=== PATIENT | male | born 1985 | race African-American/Black ===

== ENCOUNTER 2016-12-10 17:20 | Inpatient (IN) | payer OTHER ==
[2016-12-10 19:36] VITALS: BMI 23.0
--- NOTE | 2016-12-10 20:22 | HP ---
CIWA Score - CIWA Score Nausea/Vomitin-No Nausea/No Vomiting Muscle Tremors: 3 Anxiety: 1-Mildly Anxious Agitation: 1-Slight > Activity Paroxysmal Sweats: 1-Minimal Palms Moist Orientation: 1-Uncertain about Date Tacttile Disturbances: 0-None Auditory Disturbances: 7Continuous Hallucination Visual Disturbances: 0-None Headache: 1-Very Mild CIWA-Ar Total Score: 15 Admission ROS BHS - HPI Chief Complaint: WITHDRAWAL SYMPTOMS Allergies/Adverse Reactions: Allergies Allergy/AdvReac Type Severity Reaction Status Date / Time No Known Drug Allergies Allergy Unknown Verified 10/04/13 17:47 CHEESE Allergy Mild "NO CHEESE" Uncoded 10/04/13 17:44 red AdvReac Uncoded 10/06/13 11:56 History of Present Illness: 31 y.o. man with an extensive history of drug and alcohol dependence is here seeking detox. He reports he last completed detox and rehab one year ago at another facility. He states his longest period of sobriety has been 1 year. Exam Limitations: No Limitations - Ebola screening Have you traveled outside of the country in the last 21 days: No (N) Have you had contact with anyone from an Ebola affected area: No Have you been sick,other than usual withdrawal symptoms: No Do you have a fever: No - Review of Systems Constitutional: No Symptoms Reported EENT: reports: No Symptoms Reported Respiratory: reports: No Symptoms reported Cardiac: reports: No Symptoms Reported GI: reports: No Symptoms Reported : reports: No Symptoms Reported Musculoskeletal: reports: No Symptoms Reported Integumentary: reports: No Symptoms Reported Neuro: reports: No Symptoms reported Endocrine: reports: No Symptoms Reported Hematology: reports: No Symptoms Reported Psychiatric: reports: Mood/Affect Appropiate, Anxious Other Systems: Reviewed and Negative Patient History - Patient Medical History Hx Anemia: No Hx Asthma: No Hx Chronic Obstructive Pulmonary Disease (COPD): No Hx Cancer: No Hx Cardiac Disorders: No Hx Congestive Heart Failure: No Hx Hypertension: No Hx Hypercholesterolemia: No Hx Pacemaker: No HX Cerebrovascular Accident: No Hx Seizures: No Hx Dementia: No Hx Diabetes: No Hx Gastrointestinal Disorders: No Hx Liver Disease: No Hx Genitourinary Disorders: No Hx Sexually Transmitted Disorders: Yes (Syphillis: treated 2014) Hx Renal Disease (ESRD): No Hx Thyroid Disease: No Hx Human Immunodeficiency Virus (HIV): No (02/07 last tested) Hx Hepatitis C: No Hx Depression: No Hx Suicide Attempt: No Hx Bipolar Disorder: No Hx Schizophrenia: No - Patient Surgical History Past Surgical History: No Hx Neurologic Surgery: No Hx Cataract Extraction: No Hx Cardiac Surgery: No Hx Lung Surgery: No Hx Breast Surgery: No Hx Breast Biopsy: No Hx Abdominal Surgery: No Hx Appendectomy: No Hx Cholecystectomy: No Hx Genitourinary Surgery: No Hx Section: No Hx Orthopedic Surgery: No Hx Hysterectomy: No Anesthesia Reaction: No - PPD History Previous Implant?: Yes Documented Results: Negative w/proof Implanted On Prior R Admission?: Yes Date: 10/06/13 Results: 0 PPD to be Administered?: Yes - Reproductive History Patient is a Female of Child Bearing Age (11 -55 yrs old): No - Smoking Cessation Smoking history: Current every day smoker Have you smoked in the past 12 months: Yes Aproximately how many cigarettes per day: 20 Cigars Per Day: 0 Hx Chewing Tobacco Use: No Initiated information on smoking cessation: Yes 'Breaking Loose' booklet given: 12/10/16 - Substance & Tx. History Hx Alcohol Use: Yes Hx Substance Use: Yes Substance Use Type: Alcohol, Cocaine Hx Substance Use Treatment: Yes (Reports last going to detox and rehab was 1 yr ago at another facility ) - Substances Abused Alcohol Route: Oral Frequency: Daily Amount used: 2-3 pints of liquor Age of first use: 11 Date of Last Use: 12/10/16 Cocaine Route: Smoking Frequency: Daily Amount used: $50 Age of first use: 15 Date of Last Use: 12/09/16 Family Disease History - Family Disease History Family Disease History: Other: Father (alcohol), Mother (alcohol) Admission Physical Exam BHS - Vital Signs Vital Signs: Vital Signs - 24 hr 12/10/16 19:31 Temperature 97.8 F Pulse Rate 82 Respiratory 20 Rate Blood Pressure 118/84 - Physical General Appearance: Yes: Disheveled HEENTM: Yes: Hearing grossly Normal, Normocephalic, Normal Voice Respiratory: Yes: Chest Non-Tender, Lungs Clear, Normal Breath Sounds, No Respiratory Distress, No Accessory Muscle Use Neck: Yes: No masses,lesions,Nodules, Trachea in good position Breast: Yes: Breast Exam Deferred Cardiology: Yes: Regular Rhythm, Regular Rate Abdominal: Yes: Flat, Soft Genitourinary: Yes: Other (No complaints reported) Back: Yes: Normal Inspection Musculoskeletal: Yes: full range of Motion, Gait Steady, Pelvis Stable Extremities: Yes: Normal Capillary Refill, Normal Inspection, Normal Range of Motion, Non-Tender, Tremors Neurological: Yes: Alert, Normal Mood/Affect, Normal Response Integumentary: Yes: Normal Color, Dry, Warm Lymphatic: Yes: Within Normal Limits - Diagnostic (1) Alcohol dependence Current Visit: Yes Status: Acute (2) Cocaine dependence Current Visit: Yes Status: Acute (3) Nicotine dependence Current Visit: Yes Status: Acute Cleared for Admission [facility] - Detox or Rehab [facility] Level of Care: Medically Managed Detox Regimen/Protocol: Librium [facility] Breath Alcohol Content Breath Alcohol Content: 0 Urine Drug Screen - Results Drug Screen Negative: No Urine Drug Screen Results: KEVIN-Cocaine
[2016-12-10] MEDS ORDERED: MAGNESIUM HYDROX 2400MG/30ML ORAL SUSPENSION 30 ML CUP PO PRN (20:28)
[2016-12-10] MEDS ORDERED: IBUPROFEN 400 MG TABLET (FP) PO PRN (20:28)
[2016-12-10] MEDS ORDERED: hydrOXYzine PAMOATE 50 MG CAPSULE (FP) PO PRN (20:28)
[2016-12-10] MEDS ORDERED: ACETAMINOPHEN 325 MG TABLET (FP) PO PRN (20:28)
[2016-12-10] MEDS ORDERED: chlordiazePOXIDE HCL 25 MG CAPSULE PO PRN (20:28)
[2016-12-10] MEDS ORDERED: MAG HYDROX/AL HYDROX/SIMETH 30 ML UNIT-DOSE CUP PO PRN (20:28)
[2016-12-10] MEDS ORDERED: chlordiazePOXIDE HCL 25 MG CAPSULE PO ONE (20:28)
[2016-12-10] MEDS ORDERED: LOPERAMIDE HCL 2 MG CAPSULE PO PRN (20:28)
[2016-12-10] MEDS ORDERED: guaiFENesin/D-METHORPHAN HB 10 ML UNIT-DOSE CUPS PO PRN (20:28)
[2016-12-10] MEDS ORDERED: P-EPHED 60MG/TRIPROLIDI 2.5MG TABLET PO PRN (20:28)
[2016-12-10] MEDS ORDERED: MENTHOL/PHENOL 1 EACH UD MM PRN (20:28)
[2016-12-10] MEDS ORDERED: MAGNESIUM CITRATE 300 ML BOTTLE PO PRN (20:28)
[2016-12-10] MEDS: chlordiazePOXIDE HCL 25 MG CAPSULE PO SCH (23:33)
[2016-12-10] MEDS: NICOTINE POLACRILEX 2 MG GUM BUC PRN (23:33)
[2016-12-10] MEDS: THIAMINE HCL 100 MG TABLET (FP) PO SCH (23:33)
[2016-12-10] MEDS: diphenhydrAMINE HCL 50 MG CAPSULE PO PRN (23:33)
[2016-12-11] MEDS: chlordiazePOXIDE HCL 25 MG CAPSULE PO SCH ×4 (05:52→22:23)
--- NOTE | 2016-12-11 09:03 | CONSULT ---
[facility] Psychiatric Consult - Data Date of interview: 12/11/16 Admission source: [facility] Identifying data: This is 31 years old male with no psychiatiorc hospitalization history intoxicated withy: Alcohol, Cocaine, Cannabis Nicotine Substance Abuse History: - Smoking Cessation. Smoking history: Current every day smoker. Have you smoked in the past 12 months: Yes. Aproximately how many cigarettes per day: 20. Cigars Per Day: 0. Hx Chewing Tobacco Use: No. Initiated information on smoking cessation: Yes. 'Breaking Loose' booklet given : 12/10/16. - Substance & Tx. History. Hx Alcohol Use: Yes. Hx Substance Use : Yes. Substance Use Type: Alcohol, Cocaine. Hx Substance Use Treatment: Yes ( Reports last going to detox and rehab was 1 yr ago at another facility ). - Substances Abused. Alcohol. Route: Oral. Frequency: Daily. Amount used: 2 -3 pints of liquor. Age of first use: 11. Date of Last Use: 12/10/16. Cocaine. Route: Smoking. Frequency: Daily. Amount used: $50. Age of first use: 15. Date of Last Use: 12/09/16 Medical History: Syncope history, Weight loss history Psychiatric History: Patoient reprots history of depression and PTSD, reports taking prior Trazodone 100mg po qhs Physical/Sexual Abuse/Trauma History: Denies Additional Comment: Trazodone 100mg po qhs. Observation. Detox Unit Care Protocol Mental Status Exam - Mental Status Exam Alert and Oriented to: Person Cognitive Function: Fair Patient Appearance: Unkempt Mood: Sad Affect: Flat Patient Behavior: Guarded Speech Pattern: Delayed Voice Loudness: Mildly Soft/Quiet Thought Process: Circumstantial Thought Disorder: Being Controlled Hallucinations: Denies Suicidal Ideation: Denies Homicidal Ideation: Denies Insight/Judgement: Fair Sleep: Difficulty falling asleep Appetite: Weight loss Muscle strength/Tone: Mild Hypotonicity Gait/Station: Shuffling Additional Comments: Trazodone 100mg po qhs. Observation. Detox Unit Care Protocol Psychiatric Findings - Problem List ([place] 1, 2,3) (1) Alcohol dependence Current Visit: Yes Status: Acute (2) Cocaine dependence Current Visit: Yes Status: Acute (3) Nicotine dependence Current Visit: Yes Status: Acute (4) depression Current Visit: No Status: Active (5) Cannabis dependence Current Visit: No Status: Acute (6) Drug-induced mood disorder Current Visit: Yes Status: Acute - Initial Treatment Plan Initial Treatment Plan: Trazodone 100mg po qhs. Observation. Detox Unit Care Protocol. Refusing to restart Trazodone 100mg po qhs
[2016-12-11 10:29] LABS: MCH 30.8 pg (25.7-33.7); MCHC 33.9 g/dl (32.0-35.9); MEAN PLT VOLUME 7.8 fl (7.5-11.1); PLATELET COUNT 250 K/MM3 (134-434); RDW 12.2 % (11.9-15.9); WHITE BLOOD COUNT 3.9 K/mm3 (4.0-10.0)
[2016-12-11] MEDS: NICOTINE POLACRILEX 2 MG GUM BUC PRN (10:39)
[2016-12-11] MEDS: PRENATAL VITAMINS W/ FOLIC ACID TABLET (FP) PO SCH (10:39)
[2016-12-11 10:42] LABS: ALBUMIN 3.2 g/dl (3.4-5.0); ALK PHOS 67 U/L (45-117); ANION GAP 6 (8-16); BILIRUBIN,TOTAL 0.4 mg/dL (0.2-1.0); CALCIUM 8.4 mg/dL (8.5-10.1); CO2 27 mmol/L (21-32); CREATININE 0.8 mg/dL (0.7-1.3); GLUCOSE,RANDOM 88 mg/dL (74-106); SGOT/AST 10 U/L (15-37); SGPT/ALT 16 U/L (12-78); TOT PROT 6.3 g/dl (6.4-8.2)
[2016-12-11 12:08] LABS: HIV 1 & 2 AB NEGATIVE; HIV 1 AGp24 NEGATIVE
--- NOTE | 2016-12-11 12:24 | PN ---
S CIWA - CIWA Score Nausea/Vomitin Muscle Tremors: 3 Anxiety: 4-Mod. Anxious/Guarded Agitation: 2 Paroxysmal Sweats: No Perspiration Orientation: 0-Oriented Tacttile Disturbances: 2-Mild Itch/Numbness/Burn Auditory Disturbances: 2-Mild Harshness/Frighten Visual Disturbances: 0-None Headache: 0-None Present CIWA-Ar Total Score: 15 BHS Progress Note (SOAP) Subjective: Anxious, Tremors, Fatigue. Objective: PT. A & O X 3. NO ACUTE DISTRESS. 12/11/16 12:22 Vital Signs Temperature 96.9 F L 12/11/16 06:36 Pulse Rate 76 12/11/16 06:36 Respiratory Rate 16 12/11/16 06:36 Blood Pressure 111/71 12/11/16 06:36 O2 Sat by Pulse Oximetry (%) Laboratory Tests 12/11/16 12/11/16 12/11/16 07:00 07:00 07:00 WBC 3.9 L RBC 3.94 L Hgb 12.1 D Hct 35.8 MCV 91.0 MCH 30.8 MCHC 33.9 RDW 12.2 Plt Count 250 MPV 7.8 Sodium 141 Potassium 4.1 Chloride 108 H Carbon Dioxide 27 Anion Gap 6 L BUN 12 Creatinine 0.8 Creat Clearance w eGFR > 60 Random Glucose 88 Calcium 8.4 L Total Bilirubin 0.4 D AST 10 L D ALT 16 D Alkaline Phosphatase 67 Total Protein 6.3 L Albumin 3.2 L RPR Titer Nonreactive HIV 1&2 Antibody Screen HIV P24 Antigen 12/11/16 07:00 WBC RBC Hgb Hct MCV MCH MCHC RDW Plt Count MPV Sodium Potassium Chloride Carbon Dioxide Anion Gap BUN Creatinine Creat Clearance w eGFR Random Glucose Calcium Total Bilirubin AST ALT Alkaline Phosphatase Total Protein Albumin RPR Titer HIV 1&2 Antibody Screen Negative HIV P24 Antigen Negative LABS NOTED. Assessment: 12/11/16 12:23 WITHDRAWAL SYMPTOMS. Plan: CONTINUE DETOX.
--- NOTE | 2016-12-11 20:01 | EKG ---
Test Reason : Blood Pressure : / mmHG Vent. Rate : 054 BPM Atrial Rate : 054 BPM P-R Int : 138 ms QRS Dur : 090 ms QT Int : 400 ms P-R-T Axes : 041 072 043 degrees QTc Int : 379 ms SINUS BRADYCARDIA OTHERWISE NORMAL ECG NO PREVIOUS ECGS AVAILABLE Confirmed by MIGUEL HERNANDEZ MD ([id number]) on 12/11/2016 8:00:49 PM Referred By: Jose Luis Chavarria Confirmed By:MIGUEL HERNANDEZ MD
[2016-12-11] MEDS: THIAMINE HCL 100 MG TABLET (FP) PO SCH (22:23)
[2016-12-11] MEDS: diphenhydrAMINE HCL 50 MG CAPSULE PO PRN (22:23)
[2016-12-12] MEDS: chlordiazePOXIDE HCL 25 MG CAPSULE PO SCH ×3 (06:01→17:05)
[2016-12-12] MEDS: NICOTINE POLACRILEX 2 MG GUM BUC PRN ×6 (06:02→23:18)
[2016-12-12] MEDS: PRENATAL VITAMINS W/ FOLIC ACID TABLET (FP) PO SCH (11:21)
--- NOTE | 2016-12-12 12:18 | PN ---
S CIWA - CIWA Score Nausea/Vomitin Muscle Tremors: 4-Moderate,w/Arms Extend Anxiety: 3 Agitation: 0-Normal Activity Paroxysmal Sweats: 3 Orientation: 0-Oriented Tacttile Disturbances: 1-Very Mild Itch/Numbness Auditory Disturbances: 0-None Visual Disturbances: 0-None Headache: 1-Very Mild CIWA-Ar Total Score: 15 BHS Progress Note (SOAP) Subjective: nausea, sweats, interrupted sleep, anxiety, tremors Objective: 12/12/16 12:17 Vital Signs - 8 hr 12/12/16 12/12/16 06:47 10:16 Temperature 96.3 F L 97.9 F Pulse Rate 71 85 Respiratory 18 18 Rate Blood Pressure 101/71 110/71 Laboratory Tests 12/10/16 12/11/16 12/11/16 07:00 07:00 07:00 WBC 3.9 L RBC 3.94 L Hgb 12.1 D Hct 35.8 MCV 91.0 MCH 30.8 MCHC 33.9 RDW 12.2 Plt Count 250 MPV 7.8 Sodium 141 Potassium 4.1 Chloride 108 H Carbon Dioxide 27 Anion Gap 6 L BUN 12 Creatinine 0.8 Creat Clearance w eGFR > 60 Random Glucose 88 Calcium 8.4 L Total Bilirubin 0.4 D AST 10 L D ALT 16 D Alkaline Phosphatase 67 Total Protein 6.3 L Albumin 3.2 L RPR Titer Hepatitis C Antibody <0.1 HIV 1&2 Antibody Screen HIV P24 Antigen 12/11/16 12/11/16 07:00 07:00 WBC RBC Hgb Hct MCV MCH MCHC RDW Plt Count MPV Sodium Potassium Chloride Carbon Dioxide Anion Gap BUN Creatinine Creat Clearance w eGFR Random Glucose Calcium Total Bilirubin AST ALT Alkaline Phosphatase Total Protein Albumin RPR Titer Nonreactive Hepatitis C Antibody HIV 1&2 Antibody Screen Negative HIV P24 Antigen Negative hypoalbuminemia Assessment: 12/12/16 12:17 withdrawal sx Plan: cont detox, fluids, ambulation, ensure ordered for low alb/malnutirtion from substance use
[2016-12-12 17:32] LABS: URINE APPEARANCE CLEAR; URINE BILIRUBIN NEGATIVE (NEGATIVE); URINE BLOOD NEGATIVE (NEGATIVE); URINE COLOR LT. YELLOW; URINE GLUCOSE (UA) NEGATIVE (NEGATIVE); URINE KETONE NEGATIVE (NEGATIVE); URINE LEUK ESTERASE NEGATIVE (NEGATIVE); URINE NITRITE NEGATIVE (NEGATIVE); URINE PROTEIN NEGATIVE (NEGATIVE); URINE UROBILINOGEN 0.2 mg/dL (0.2-1.0)
[2016-12-12] MEDS: THIAMINE HCL 100 MG TABLET (FP) PO SCH (22:29)
[2016-12-12] MEDS: chlordiazePOXIDE 5 MG CAPSULE PO SCH (22:29)
[2016-12-12] MEDS: diphenhydrAMINE HCL 50 MG CAPSULE PO PRN (22:30)
[2016-12-13] MEDS: chlordiazePOXIDE 5 MG CAPSULE PO SCH ×3 (06:13→17:17)
[2016-12-13] MEDS: NICOTINE POLACRILEX 2 MG GUM BUC PRN ×6 (10:36→23:23)
[2016-12-13] MEDS: PRENATAL VITAMINS W/ FOLIC ACID TABLET (FP) PO SCH (10:36)
--- NOTE | 2016-12-13 16:26 | PN ---
BHS Progress Note (SOAP) Subjective: Sweating,interrupted sleep,restless Objective: 12/13/16 16:25 Vital Signs - 8 hr 12/13/16 12/13/16 09:39 13:59 Temperature 97.9 F 96.2 F L Pulse Rate 80 83 Respiratory 20 20 Rate Blood Pressure 116/75 115/71 Laboratory Last Values WBC 3.9 K/mm3 (4.0-10.0) L 12/11/16 07:00 RBC 3.94 M/mm3 (4.00-5.60) L 12/11/16 07:00 Hgb 12.1 GM/dL (11.7-16.9) D 12/11/16 07:00 Hct 35.8 % (35.4-49) 12/11/16 07:00 MCV 91.0 fl (80-96) 12/11/16 07:00 MCH 30.8 pg (25.7-33.7) 12/11/16 07:00 MCHC 33.9 g/dl (32.0-35.9) 12/11/16 07:00 RDW 12.2 % (11.9-15.9) 12/11/16 07:00 Plt Count 250 K/MM3 (134-434) 12/11/16 07:00 MPV 7.8 fl (7.5-11.1) 12/11/16 07:00 Sodium 141 mmol/L (136-145) 12/11/16 07:00 Potassium 4.1 mmol/L (3.5-5.1) 12/11/16 07:00 Chloride 108 mmol/L (98-107) H 12/11/16 07:00 Carbon Dioxide 27 mmol/L (21-32) 12/11/16 07:00 Anion Gap 6 (8-16) L 12/11/16 07:00 BUN 12 mg/dL (7-18) 12/11/16 07:00 Creatinine 0.8 mg/dL (0.7-1.3) 12/11/16 07:00 Creat Clearance w eGFR > 60 (>60) 12/11/16 07:00 Random Glucose 88 mg/dL (74-106) 12/11/16 07:00 Calcium 8.4 mg/dL (8.5-10.1) L 12/11/16 07:00 Total Bilirubin 0.4 mg/dL (0.2-1.0) D 12/11/16 07:00 AST 10 U/L (15-37) L D 12/11/16 07:00 ALT 16 U/L (12-78) D 12/11/16 07:00 Alkaline Phosphatase 67 U/L (45-117) 12/11/16 07:00 Total Protein 6.3 g/dl (6.4-8.2) L 12/11/16 07:00 Albumin 3.2 g/dl (3.4-5.0) L 12/11/16 07:00 Urine Color Lt. yellow 12/12/16 14:07 Urine Appearance Clear 12/12/16 14:07 Urine pH 7.0 (5.0-8.0) 12/12/16 14:07 Ur Specific [place] 1.020 (1.005-1.025) 12/12/16 14:07 Urine Protein Negative (NEGATIVE) 12/12/16 14:07 Urine Glucose (UA) Negative (NEGATIVE) 12/12/16 14:07 Urine Ketones Negative (NEGATIVE) 12/12/16 14:07 Urine Blood Negative (NEGATIVE) 12/12/16 14:07 Urine Nitrite Negative (NEGATIVE) 12/12/16 14:07 Urine Bilirubin Negative (NEGATIVE) 12/12/16 14:07 Urine Urobilinogen 0.2 mg/dL (0.2-1.0) 12/12/16 14:07 Ur Leukocyte Esterase Negative (NEGATIVE) 12/12/16 14:07 RPR Titer Nonreactive (NONREACTIVE) 12/11/16 07:00 Hepatitis C Antibody <0.1 s/co ratio (0.0-0.9) 12/10/16 07:00 HIV 1&2 Antibody Screen Negative 12/11/16 07:00 HIV P24 Antigen Negative 12/11/16 07:00 labs noted Assessment: 12/13/16 16:26 Withdrawal sx. Plan: Continue detox
[2016-12-13] MEDS: diphenhydrAMINE HCL 50 MG CAPSULE PO PRN (22:15)
[2016-12-13] MEDS: THIAMINE HCL 100 MG TABLET (FP) PO SCH (22:15)
[2016-12-13] MEDS: chlordiazePOXIDE HCL 10 MG CAPSULE PO SCH (22:15)
[2016-12-14] MEDS: chlordiazePOXIDE HCL 10 MG CAPSULE PO SCH (05:45)
[2016-12-14] MEDS: NICOTINE POLACRILEX 2 MG GUM BUC PRN (05:47)
[2016-12-14 06:27] VITALS: BP 114/69; PULSE 75; TEMP 97
--- NOTE | 2016-12-14 22:50 | DS ---
[facility] Detox Discharge Summary Admission Date: 12/10/16 Discharge Date: 12/14/16 - History Present History: Alcohol Dependence, Cocaine Dependence Additional Comments: PATIENT TO GO TO [facility] UNTIL UNTIL 12/16/2016 AND THEN GO TO [facility] IN [facility] FOR FOLLOW-UP AFTERCARE. PATIENT DISCHARGED FROM UNIT IN STABLE MEDICAL CONDITION. - Physical Exam Results Vital Signs: Vital Signs Temperature 97 F L 12/14/16 06:26 Pulse Rate 75 12/14/16 06:26 Respiratory Rate 18 12/14/16 06:26 Blood Pressure 114/69 12/14/16 06:26 O2 Sat by Pulse Oximetry (%) Pertinent Admission Physical Exam Findings: WITHDRAWAL SYMPTOMS. Laboratory Tests 12/10/16 12/11/16 12/11/16 07:00 07:00 07:00 WBC 3.9 L RBC 3.94 L Hgb 12.1 D Hct 35.8 MCV 91.0 MCH 30.8 MCHC 33.9 RDW 12.2 Plt Count 250 MPV 7.8 Sodium 141 Potassium 4.1 Chloride 108 H Carbon Dioxide 27 Anion Gap 6 L BUN 12 Creatinine 0.8 Creat Clearance w eGFR > 60 Random Glucose 88 Calcium 8.4 L Total Bilirubin 0.4 D AST 10 L D ALT 16 D Alkaline Phosphatase 67 Total Protein 6.3 L Albumin 3.2 L Urine Color Urine Appearance Urine pH Ur Specific [place] Urine Protein Urine Glucose (UA) Urine Ketones Urine Blood Urine Nitrite Urine Bilirubin Urine Urobilinogen Ur Leukocyte Esterase RPR Titer Hepatitis C Antibody <0.1 HIV 1&2 Antibody Screen HIV P24 Antigen 12/11/16 12/11/16 12/12/16 07:00 07:00 14:07 WBC RBC Hgb Hct MCV MCH MCHC RDW Plt Count MPV Sodium Potassium Chloride Carbon Dioxide Anion Gap BUN Creatinine Creat Clearance w eGFR Random Glucose Calcium Total Bilirubin AST ALT Alkaline Phosphatase Total Protein Albumin Urine Color Lt. yellow Urine Appearance Clear Urine pH 7.0 Ur Specific [place] 1.020 Urine Protein Negative Urine Glucose (UA) Negative Urine Ketones Negative Urine Blood Negative Urine Nitrite Negative Urine Bilirubin Negative Urine Urobilinogen 0.2 Ur Leukocyte Esterase Negative RPR Titer Nonreactive Hepatitis C Antibody HIV 1&2 Antibody Screen Negative HIV P24 Antigen Negative LABS NOTED. - Treatment Hospital Course: Detox Protocol Followed, Detoxed Safely, Responded well, Discharged Condition Good, Rehab Referral Accepted Patient has Accepted a Rehab Referral to: [facility], [place] - Medication Discharge Medications: Ambulatory Orders Trazodone HCl [Desyrel] 100 mg PO HS #0 tablet 07/18/12 - Diagnosis (1) Nicotine dependence Status: Acute (2) Alcohol dependence Status: Acute (3) Cannabis dependence Status: Acute (4) Cocaine dependence Status: Acute (5) Drug-induced mood disorder Status: Acute (6) depression Status: Active - AMA Did Patient Leave Against Medical Advice: No
== END 2016-12-14 08:25 | disposition home or self-care (01) | DRG 774 ==
LOC: YASAS 17:20 → Y3N 21:57 → UNDOADMIN 21:57 → Y3N 22:13
PROVIDERS: ADMIT Internal Medicine; ATTEND Internal Medicine
PROC: HZ2ZZZZ Detoxification Services for Substance Abuse Treatment (ICD-10-PCS; principal; 2016-12-10)
DX: F10.230 Alcohol dependence with withdrawal, uncomplicated (principal); F14.20 Cocaine dependence, uncomplicated; F17.210 Nicotine dependence, cigarettes, uncomplicated; F19.24 Other psychoactive substance dependence with psychoactive substance-induced mood disorder; F32.9 Major depressive disorder, single episode, unspecified; E88.09 Other disorders of plasma-protein metabolism, not elsewhere classified; Z87.438 Personal history of other diseases of male genital organs; Z91.011 Allergy to milk products; Z59.0 Homelessness
CPT/HCPCS: 36415; 80053; 81003; 85027; 86593; 86803; 87389; 93005; 93010

== ENCOUNTER 2019-04-22 15:03 | Inpatient (IN) | payer OTHER ==
[2019-04-22 18:10] VITALS: BMI 21.9
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
[2019-04-22] MEDS ORDERED: MAGNESIUM HYDROX 2400MG/30ML ORAL SUSPENSION 30 ML CUP PO PRN (21:15)
[2019-04-22] MEDS ORDERED: hydrOXYzine PAMOATE 25 MG CAPSULE (FP) PO PRN (21:15)
[2019-04-22] MEDS ORDERED: MELATONIN 5 MG TABLETS PO PRN (21:15)
[2019-04-22] MEDS ORDERED: METHOCARBAMOL 500 MG TABLET PO PRN (21:15)
[2019-04-22] MEDS ORDERED: ACETAMINOPHEN 325 MG TABLET (FP) PO PRN ×2 (21:15)
[2019-04-22] MEDS ORDERED: MENTHOL/PHENOL 1 EACH UD MM PRN (21:15)
[2019-04-22] MEDS ORDERED: chlordiazePOXIDE HCL 25 MG CAPSULE PO PRN (21:15)
[2019-04-22] MEDS ORDERED: MAGNESIUM CITRATE 300 ML BOTTLE PO PRN (21:15)
[2019-04-22] MEDS ORDERED: MAG HYDROX/AL HYDROX/SIMETH 30 ML UNIT-DOSE CUP PO PRN (21:15)
[2019-04-22] MEDS ORDERED: BISMUTH SUBSALICYLATE 524 MG/30 ML UD PO PRN (21:15)
[2019-04-22] MEDS ORDERED: IBUPROFEN 400 MG TABLET (FP) PO PRN (21:15)
[2019-04-22] MEDS ORDERED: THIAMINE HCL 100 MG TABLET (FP) PO SCH (22:00)
[2019-04-22] MEDS: chlordiazePOXIDE HCL 25 MG CAPSULE PO SCH (22:05)
[2019-04-22] MEDS: NICOTINE POLACRILEX 2 MG GUM BUC PRN (22:05)
[2019-04-23] MEDS: chlordiazePOXIDE HCL 25 MG CAPSULE PO SCH ×2 (06:53→11:06)
[2019-04-23] MEDS: NICOTINE POLACRILEX 2 MG GUM BUC PRN (06:56)
[2019-04-23] MEDS ORDERED: NICOTINE 21 MG/24 HOURS TOPICAL PATCH TD SCH (10:00)
[2019-04-23] MEDS ORDERED: PRENATAL VITAMINS W/ FOLIC ACID TABLET (FP) PO SCH (10:00)
[2019-04-23 10:24] LABS: HEMATOCRIT 38.8 % (35.4-49); MCH 31.6 pg (25.7-33.7); MCHC 33.6 g/dl (32.0-35.9); MEAN PLT VOLUME 8.3 fl (7.5-11.1); PLATELET COUNT 266 K/MM3 (134-434); RBC 4.13 M/mm3 (4.00-5.60); RDW 12.8 % (11.9-15.9); WHITE BLOOD COUNT 5.1 K/mm3 (4.0-10.0)
[2019-04-23 10:34] LABS: ALBUMIN 3.4 g/dl (3.4-5.0); BILIRUBIN,TOTAL 0.3 mg/dL (0.2-1); BLOOD UREA NITROGEN 10.4 mg/dL (7-18); CALCIUM 8.3 mg/dL (8.5-10.1); CREATININE 0.9 mg/dL (0.55-1.3); POTASSIUM 4.3 mmol/L (3.5-5.1); TOT PROT 6.4 g/dl (6.4-8.2)
--- NOTE | 2019-04-23 11:05 | PN ---
S CIWA - CIWA Score Nausea/Vomitin-No Nausea/No Vomiting Muscle Tremors: 3 Anxiety: 3 Agitation: 3 Paroxysmal Sweats: 3 Orientation: 0-Oriented Tacttile Disturbances: 0-None Auditory Disturbances: 0-None Visual Disturbances: 0-None Headache: 0-None Present CIWA-Ar Total Score: 12 S Progress Note (SOAP) Subjective: sweats agitation body aches irritable Objective: 04/23/19 11:04 Vital Signs Temperature 97.7 F 04/23/19 09:18 Pulse Rate 75 04/23/19 09:18 Respiratory Rate 18 04/23/19 09:18 Blood Pressure 111/58 L 04/23/19 09:18 O2 Sat by Pulse Oximetry (%) Laboratory Tests 04/23/19 04/23/19 04/23/19 07:40 07:40 07:50 WBC 5.1 RBC 4.13 Hgb 13.0 Hct 38.8 MCV 94.0 MCH 31.6 MCHC 33.6 RDW 12.8 Plt Count 266 MPV 8.3 Sodium 140 Potassium 4.3 Chloride 110 H Carbon Dioxide 26 Anion Gap 4 L BUN 10.4 Creatinine 0.9 Est GFR (CKD-EPI)AfAm 127.80 Est GFR (CKD-EPI)NonAf 110.27 Random Glucose 86 Calcium 8.3 L Total Bilirubin 0.3 AST 16 ALT 21 Alkaline Phosphatase 69 Total Protein 6.4 Albumin 3.4 HIV 1&2 Antibody Screen Negative HIV P24 Antigen Negative aaox3 ambulating no acute distress Assessment: 04/23/19 11:04 withdrawal sx Plan: continue detox increase fluids
[2019-04-23] MEDS ORDERED: MELATONIN 5 MG TABLETS PO PRN (12:00)
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
--- NOTE | 2019-04-23 13:28 | EKG ---
Test Reason : Blood Pressure : / mmHG Vent. Rate : 071 BPM Atrial Rate : 071 BPM P-R Int : 152 ms QRS Dur : 086 ms QT Int : 376 ms P-R-T Axes : 071 083 047 degrees QTc Int : 408 ms NORMAL SINUS RHYTHM WITH SINUS ARRHYTHMIA VOLTAGE CRITERIA FOR LEFT VENTRICULAR HYPERTROPHY WHEN COMPARED WITH ECG OF 10-DEC-2016 22:37, T WAVE AMPLITUDE HAS DECREASED IN ANTERIOR LEADS Confirmed by ROSALINDA URIBE, VIDA ([id number]) on 04/23/2019 1:28:22 PM Referred By: Confirmed By:VIDA TELLEZ MD
[2019-04-23 16:41] VITALS: BP 145/90; PULSE 63; TEMP 96.3
--- NOTE | 2019-04-23 16:48 | PN ---
[facility] Progress Note Note: Notified by nursing staff patient requested to sign out AMA. Patient encouraged to stay in treatment and wait for provider evaluation. Patient refused to stay in detox and requested to sign out AMA immediately. Patient left prior to provider evaluation and signed out AMA. Vital Signs Temperature 96.3 F L 04/23/19 16:41 Pulse Rate 63 04/23/19 16:41 Respiratory Rate 20 04/23/19 16:41 Blood Pressure 145/90 04/23/19 16:41 O2 Sat by Pulse Oximetry (%) Laboratory Tests 04/23/19 04/23/19 04/23/19 07:40 07:40 07:40 WBC 5.1 RBC 4.13 Hgb 13.0 Hct 38.8 MCV 94.0 MCH 31.6 MCHC 33.6 RDW 12.8 Plt Count 266 MPV 8.3 Sodium 140 Potassium 4.3 Chloride 110 H Carbon Dioxide 26 Anion Gap 4 L BUN 10.4 Creatinine 0.9 Est GFR (CKD-EPI)AfAm 127.80 Est GFR (CKD-EPI)NonAf 110.27 Random Glucose 86 Calcium 8.3 L Total Bilirubin 0.3 AST 16 ALT 21 Alkaline Phosphatase 69 Total Protein 6.4 Albumin 3.4 RPR Titer Nonreactive HIV 1&2 Antibody Screen HIV P24 Antigen 04/23/19 07:50 WBC RBC Hgb Hct MCV MCH MCHC RDW Plt Count MPV Sodium Potassium Chloride Carbon Dioxide Anion Gap BUN Creatinine Est GFR (CKD-EPI)AfAm Est GFR (CKD-EPI)NonAf Random Glucose Calcium Total Bilirubin AST ALT Alkaline Phosphatase Total Protein Albumin RPR Titer HIV 1&2 Antibody Screen Negative HIV P24 Antigen Negative
--- NOTE | 2019-04-23 19:16 | DS ---
[facility] Detox Discharge Summary Admission Date: 04/22/19 Discharge Date: 04/23/19 - History Present History: Alcohol Dependence - Physical Exam Results Vital Signs: Vital Signs Temperature 96.3 F L 04/23/19 16:41 Pulse Rate 63 04/23/19 16:41 Respiratory Rate 20 04/23/19 16:41 Blood Pressure 145/90 04/23/19 16:41 O2 Sat by Pulse Oximetry (%) Pertinent Admission Physical Exam Findings: Admitted w/ alcohol withdrawal symptoms. Laboratory Last Values WBC 5.1 K/mm3 (4.0-10.0) 04/23/19 07:40 RBC 4.13 M/mm3 (4.00-5.60) 04/23/19 07:40 Hgb 13.0 GM/dL (11.7-16.9) 04/23/19 07:40 Hct 38.8 % (35.4-49) 04/23/19 07:40 MCV 94.0 fl (80-96) 04/23/19 07:40 MCH 31.6 pg (25.7-33.7) 04/23/19 07:40 MCHC 33.6 g/dl (32.0-35.9) 04/23/19 07:40 RDW 12.8 % (11.9-15.9) 04/23/19 07:40 Plt Count 266 K/MM3 (134-434) 04/23/19 07:40 MPV 8.3 fl (7.5-11.1) 04/23/19 07:40 Sodium 140 mmol/L (136-145) 04/23/19 07:40 Potassium 4.3 mmol/L (3.5-5.1) 04/23/19 07:40 Chloride 110 mmol/L (98-107) H 04/23/19 07:40 Carbon Dioxide 26 mmol/L (21-32) 04/23/19 07:40 Anion Gap 4 MMOL/L (8-16) L 04/23/19 07:40 BUN 10.4 mg/dL (7-18) 04/23/19 07:40 Creatinine 0.9 mg/dL (0.55-1.3) 04/23/19 07:40 Est GFR (CKD-EPI)AfAm 127.80 04/23/19 07:40 Est GFR (CKD-EPI)NonAf 110.27 04/23/19 07:40 Random Glucose 86 mg/dL (74-106) 04/23/19 07:40 Calcium 8.3 mg/dL (8.5-10.1) L 04/23/19 07:40 Total Bilirubin 0.3 mg/dL (0.2-1) 04/23/19 07:40 AST 16 U/L (15-37) 04/23/19 07:40 ALT 21 U/L (13-61) 04/23/19 07:40 Alkaline Phosphatase 69 U/L (45-117) 04/23/19 07:40 Total Protein 6.4 g/dl (6.4-8.2) 04/23/19 07:40 Albumin 3.4 g/dl (3.4-5.0) 04/23/19 07:40 RPR Titer Nonreactive (NONREACTIVE) 04/23/19 07:40 HIV 1&2 Antibody Screen Negative 04/23/19 07:50 HIV P24 Antigen Negative 04/23/19 07:50 Labs reviewed. - Treatment Hospital Course: Discharged Condition Good (Patient did not complete detox. Patient refused to met w/ NO for home prescriptions or NRT.) - Diagnosis (1) Alcohol dependence with withdrawal, uncomplicated Status: Acute (2) depression Status: Chronic (3) Cocaine dependence Status: Chronic (4) Nicotine dependence Status: Chronic - AMA Did Patient Leave Against Medical Advice: Yes
[2019-04-24] MEDS ORDERED: chlordiazePOXIDE HCL 25 MG CAPSULE PO SCH (05:00)
[2019-04-25] MEDS ORDERED: chlordiazePOXIDE HCL 10 MG CAPSULE PO PRN
[2019-04-25] MEDS ORDERED: chlordiazePOXIDE HCL 10 MG CAPSULE PO SCH (05:00)
[2019-04-26] MEDS ORDERED: chlordiazePOXIDE HCL 10 MG CAPSULE PO SCH (05:00)
[2019-04-27] MEDS ORDERED: chlordiazePOXIDE HCL 10 MG CAPSULE PO ONE (05:00)
== END 2019-04-23 16:55 | disposition left against medical advice (07) | DRG 770 ==
LOC: YASAS 15:03 → Y6N 21:31
PROVIDERS: ADMIT Allergy & Immunology; ATTEND Allergy & Immunology
PROC: HZ2ZZZZ Detoxification Services for Substance Abuse Treatment (ICD-10-PCS; principal; 2019-04-22)
DX: F10.230 Alcohol dependence with withdrawal, uncomplicated (principal); F14.20 Cocaine dependence, uncomplicated; F12.20 Cannabis dependence, uncomplicated; F17.210 Nicotine dependence, cigarettes, uncomplicated; F19.282 Other psychoactive substance dependence with psychoactive substance-induced sleep disorder; Z87.438 Personal history of other diseases of male genital organs; Z91.011 Allergy to milk products; Z62.810 Personal history of physical and sexual abuse in childhood
CPT/HCPCS: 36415; 80053; 85027; 86593; 87389; 93005; 93010

== ENCOUNTER 2019-06-05 12:27 | Inpatient (IN) | payer OTHER ==
[2019-06-05 13:53] VITALS: BMI 23.8
--- NOTE | 2019-06-05 16:15 | HP ---
CIWA Score Nausea/Vomitin Muscle Tremors: 3 Anxiety: 3 Agitation: 4-Moderately Restless Paroxysmal Sweats: 1-Minimal Palms Moist Orientation: 0-Oriented Tacttile Disturbances: 0-None Auditory Disturbances: 0-None Visual Disturbances: 0-None Headache: 0-None Present CIWA-Ar Total Score: 14 - Admission Criteria [facility]ASAS Guidelines: Admission for Medically Managed Detox: Requires at least one of the followin. CIWA greater than 12 2. Seizures within the past 24 hours 3. Delirium tremens within the past 24 hours 4. Hallucinations within the past 24 hours 5. Acute intervention needed for co occurring medical disorder 6. Acute intervention needed for co occurring psychiatric disorder 7. Severe withdrawal that cannot be handled at a lower level of care (continued vomiting, continued diarrhea, abnormal vital signs) requiring intravenous medication and/or fluids 8. Patient presents the following: CIWA greater than 12 Admission Criteria Met: Admission criteria met Admitting History and Physical - Primary Care Physician PCP: none - Admission Chief Complaint: going into alcohol withdrawal History of Present Illness: drinks daily, 2 pints of vodka, now starting to withdraw, feels anxious, nausea , shaking tremors, sweaty last detox was March. Before that was around 3 years ago. History Source: Patient Limitations to Obtaining History: No Limitations - Past Medical History [employer]: No: Alzheimer's, CVA, Dementia, Migraine, Multiple Sclerosis, Peripheral Neuropathy, Parkinson's, Seizure, Syncope, TIA, Vertigo, Other Cardiovascular: No: AFIB, Aneurysm, Aortic Insufficiency, Aortic Stenosis, CAD, CHF, Deep Vein Thrombosis, HTN, Hyperlipdemia, CA, Mitral Insufficiency, Mitral Stenosis, Murmur, Pulmonary Hypertension, Other Pulmonary: No: Asthma, Bronchitis, Cancer, COPD, O2 Dependent, Pneumonia, Previously Intubated, Pulmonary Embolus, Pulmonary Fibrosis, Sleep Apnea, Other Gastrointestinal: No: Ascites, Cancer, Constipation, Crohn's Disease, Diverticulitis, Diverticulosis, Esophageal Varices, Gastritis, GERD, GI Bleed, Hemorrhoids, Hiatal Hernia, Inflamatory Bowel Disease, Irritable Bowel Disease, Pancreatitis, Peptic Ulcer Disease, Ulcerative Colitis, Other Hepatobiliary: No: Cirrhosis, Cholelithiasis, Cholecystitis, Choledocholithiasis , Hepatitis A, Hepatitis B, Hepatitis C, Other Renal/: No: Renal Failure, Renal Inusuff, BPH, Cancer, Hematuria, Hemodialysis , Neurogenic Bladder, Renal Calculi, UTI, Other Heme/Onc: No: Anemia, B12 Deficiency, Bleeding Disorder, Cancer, Current Chemotherapy, Current Radiation Therapy, Hemochromatosis, Hypercoaguable State, Myeloproliferative Synd, Sickle Cell Disease, Sickle Cell Trait, Thrombocytopenia, Other Infectious Disease: No: AIDS, C-Diff, Herpes Zoster, HIV, MRSA, STD's, Tuberculosis, VREF, Other Psych: No: Addictions, Anxiety, Bipolar, Depression, Panic, Psychosis, Schizophrenia, Other Musculoskeletal: No: Bursitis, Chronic low back pain, Hemiparesis, Hemiplegia, Osteoarthritis, Paraplegia, Other Rheumatology: No: Fibromyalgia, Gout, Lupus, Rheumatoid Arthritis, Sarcoidosis, Vasculitis, Other ENT: No: Allergic Rhinitis, Sinusitis, Other Endocrine: No: Jon's Disease, [place]'s Disease, Diabetes Insipidus, Diabetes Mellitus, Hyperparathyroidism, Hyperthyroidism, Hypothyroidism, Osteopenia, SIADH, Other Dermatology: No: Basal Cell, Cellulitis, Eczema, Melanoma, Psoriasis, Squamous Cell, Other - Past Surgical History Past Surgical History: No: None, AAA Repair, AICD, Amputation, Appendectomy, Arthrosocopy, AV Fistula/Graft, Bariatric Surgery, Breast Biopsy, Bypass, CABG, Carotid Endarterectomy, Cataract Removal, Cholecystectomy, Colectomy, Colonoscopy, Colostomy, Craniotomy, , Cystectomy, Hernia Repair, Hysterectomy, Ileal Conduit, Ileosotomy, Joint Replacement, Kidney Transplant, Laminectomy, Liver Transplant, Mastectomy, Nephrectomy, Oopherectomy, Orchiectomy, Permanent Pacemaker, Prostatectomy, Splenectomy, Stent, Thoracotomy , TURP, Tonsillectomy, Tubal Ligation, Upper Endoscopy, Valve Replacement, Vasectomy, Vein Stripping/Ligation - Advance Directives Advance Directives: No: Living Will, Health Care Proxy, DNR, Organ Donor, Tissue Donor, MOLST - Smoking History Smoking history: Current every day smoker Have you smoked in the past 12 months: Yes Aproximately how many cigarettes per day: 20 - Alcohol/Substance Use Hx Alcohol Use: Yes Number of Drinks Daily: 2 (2 pints vodka daily) History of Substance Use: reports: Marijuana Date of Last Use: 05/29/19 (2x per month) - Social History Usual Living Arrangement: Yes: With Significant Other (lives with mother) Do you think of yourself as: Straight/Heterosexual ADL: Independent Occupation: unemployed History of Recent Travel: No Admission ROS S - [facility] Chief Complaint: alcohol withdrawal Allergies/Adverse Reactions: Allergies Allergy/AdvReac Type Severity Reaction Status Date / Time cheese Allergy Verified 06/05/19 13:45 No Known Drug Allergies Allergy Verified 04/23/19 12:33 lactose AdvReac Verified 06/05/19 13:45 lactose intolerance AdvReac Uncoded 04/22/19 18:13 Exam Limitations: No Limitations - Ebola screening Have you traveled outside of the country in the last 21 days: No - Review of Systems Constitutional: Chills, Diaphoresis, Weight Stable EENT: reports: No Symptoms Reported Respiratory: reports: No Symptoms reported Cardiac: reports: No Symptoms Reported GI: reports: Nausea : reports: No Symptoms Reported Musculoskeletal: reports: Muscle Pain Integumentary: reports: No Symptoms Reported Neuro: reports: Tremors Endocrine: reports: No Symptoms Reported Hematology: reports: No Symptoms Reported Psychiatric: reports: No Sypmtoms Reported Other Systems: Reviewed and Negative Patient History - Patient Medical History Hx Anemia: No Hx Asthma: No Hx Chronic Obstructive Pulmonary Disease (COPD): No Hx Cancer: No Hx Cardiac Disorders: No Hx Congestive Heart Failure: No Hx Hypertension: No Hx Hypercholesterolemia: No Hx Pacemaker: No HX Cerebrovascular Accident: No Hx Seizures: No Hx Dementia: No Hx Diabetes: No Hx Gastrointestinal Disorders: No Hx Liver Disease: No Hx Genitourinary Disorders: No Hx Sexually Transmitted Disorders: Yes (Syphillis: treated 2014) Hx Renal Disease (ESRD): No Hx Thyroid Disease: No Hx Human Immunodeficiency Virus (HIV): No (02/07 last tested) Hx Hepatitis C: No Hx Depression: Yes (Not on medication) Hx Suicide Attempt: No (Denies suicidal ideation at this time) Hx Bipolar Disorder: No Hx Schizophrenia: No - Patient Surgical History Past Surgical History: No Hx Neurologic Surgery: No Hx Cataract Extraction: No Hx Cardiac Surgery: No Hx Lung Surgery: No Hx Breast Surgery: No Hx Breast Biopsy: No Hx Abdominal Surgery: No Hx Appendectomy: No Hx Cholecystectomy: No Hx Genitourinary Surgery: No Hx Section: No Hx Orthopedic Surgery: No Hx Hysterectomy: No Anesthesia Reaction: No - PPD History Documented Results: Negative w/proof Implanted On Prior [facility] Admission?: Yes Date: 12/12/16 Results: 0 PPD to be Administered?: Yes - Reproductive History Patient is a Female of Child Bearing Age (11 -55 yrs old): No - Smoking Cessation Smoking history: Current every day smoker Have you smoked in the past 12 months: Yes Aproximately how many cigarettes per day: 20 Cigars Per Day: 0 Hx Chewing Tobacco Use: No Initiated information on smoking cessation: Yes 'Breaking Loose' booklet given: 06/05/19 - Substance & Tx. History Hx Alcohol Use: Yes Hx Substance Use: Yes Substance Use Type: Marijuana Hx Substance Use Treatment: Yes (detox here before) - Substances abused Alcohol Substance route: Oral Frequency: Daily Amount used: 2 pints of vodka/day Age of first use: 11 Date of last use: 06/05/19 Admission Physical Exam [facility] - Vital Signs Vital Signs: Vital Signs - 24 hr 06/05/19 13:48 Temperature 98.4 F Pulse Rate 94 H Respiratory 16 Rate Blood Pressure 133/70 - Physical General Appearance: Yes: Within Normal Limits, Mild Distress, Thin, Irritable HEENTM: Yes: Within Normal Limits. No: Scleral Ictenus R, Scleral Ictenus L, Pharyngeal Erythemia, Tonsilar Exudate, Thrush Respiratory: Yes: Within Normal Limits. No: Rales, Wheezing Neck: Yes: Within Normal Limits. No: Thyroid enlarged Breast: Yes: Within Normal Limits Cardiology: Yes: Within Normal Limits, Regular Rhythm, Regular Rate, S1, S2. No : JVD, Murmur Abdominal: Yes: Within Normal Limits, Non Tender, Soft. No: Guarding, Rebound Back: Yes: Within Normal Limits. No: CVA Tenderness Musculoskeletal: Yes: Within Normal Limits, full range of Motion, Gait Steady Extremities: Yes: Within Normal Limits, Normal Inspection, Normal Range of Motion, Non-Tender Neurological: Yes: Within Normal Limits, payroll technician II-XII NML intact, Alert, Motor Strength 5/5. No: Sensory Deficit Integumentary: Yes: Within Normal Limits, Normal Color Lymphatic: Yes: Within Normal Limits - Diagnostic (1) Alcohol dependence Current Visit: No Status: Acute (2) Alcohol dependence with withdrawal, uncomplicated Current Visit: No Status: Acute Cleared for Admission [facility] - Detox or Rehab [facility] Level of Care: Medically Managed Detox Regimen/Protocol: Librium Breathalyzer - Breathalyzer Breathalyzer: 0 Urine Drug Screen - Test Device Lot number: [id number] Expiration date: 03/22/21 - Control Is test valid?: Yes - Results Drug screen NEGATIVE: No Urine drug screen results: KEVIN-Cocaine Inpatient Rehab Admission - Rehab Decision to Admit Inpatient rehab admission?: No
[2019-06-05] MEDS ORDERED: BISMUTH SUBSALICYLATE 524 MG/30 ML UD PO PRN (16:24)
[2019-06-05] MEDS ORDERED: METHOCARBAMOL 500 MG TABLET PO PRN (16:24)
[2019-06-05] MEDS ORDERED: hydrOXYzine PAMOATE 25 MG CAPSULE (FP) PO PRN (16:24)
[2019-06-05] MEDS ORDERED: MAG HYDROX/AL HYDROX/SIMETH 30 ML UNIT-DOSE CUP PO PRN (16:24)
[2019-06-05] MEDS ORDERED: chlordiazePOXIDE HCL 10 MG CAPSULE PO PRN (16:24)
[2019-06-05] MEDS ORDERED: MELATONIN 5 MG TABLETS PO PRN (16:24)
[2019-06-05] MEDS ORDERED: IBUPROFEN 400 MG TABLET (FP) PO PRN (16:24)
[2019-06-05] MEDS ORDERED: ACETAMINOPHEN 325 MG TABLET (FP) PO PRN ×2 (16:24)
[2019-06-05] MEDS ORDERED: MAGNESIUM HYDROX 2400MG/30ML ORAL SUSPENSION 30 ML CUP PO PRN (16:24)
[2019-06-05] MEDS ORDERED: MAGNESIUM CITRATE 300 ML BOTTLE PO PRN (16:24)
[2019-06-05] MEDS ORDERED: ONDANSETRON *ODT* 4 MG TABLET SL PRN (16:24)
[2019-06-05] MEDS ORDERED: MENTHOL/PHENOL 1 EACH UD MM PRN (16:24)
[2019-06-05] MEDS: NICOTINE POLACRILEX 2 MG GUM BUC PRN ×3 (17:34→22:46)
[2019-06-05] MEDS ORDERED: THIAMINE HCL 100 MG TABLET (FP) PO SCH (22:00)
[2019-06-05] MEDS: chlordiazePOXIDE HCL 25 MG CAPSULE PO SCH (22:44)
[2019-06-06] MEDS: chlordiazePOXIDE HCL 25 MG CAPSULE PO SCH ×2 (06:07→12:58)
[2019-06-06] MEDS: NICOTINE POLACRILEX 2 MG GUM BUC PRN ×3 (09:39→16:52)
[2019-06-06 09:46] VITALS: TEMP 96.5
[2019-06-06] MEDS ORDERED: PRENATAL VITAMINS W/ FOLIC ACID TABLET (FP) PO SCH (10:00)
[2019-06-06 10:16] LABS: HEMATOCRIT 35.6 % (35.4-49); HEMOGLOBIN 12.1 GM/dL (11.7-16.9); MCH 31.5 pg (25.7-33.7); MCHC 34.1 g/dl (32.0-35.9); MEAN CELL VOLUME 92.2 fl (80-96); MEAN PLT VOLUME 8.5 fl (7.5-11.1); PLATELET COUNT 245 K/MM3 (134-434); RBC 3.86 M/mm3 (4.00-5.60); RDW 13.1 % (11.9-15.9); WHITE BLOOD COUNT 3.2 K/mm3 (4.0-10.0)
[2019-06-06 10:55] LABS: ALBUMIN 3.3 g/dl (3.4-5.0); BILIRUBIN,TOTAL 0.8 mg/dL (0.2-1); BLOOD UREA NITROGEN 12.3 mg/dL (7-18); CALCIUM 8.8 mg/dL (8.5-10.1); CREATININE 1.1 mg/dL (0.55-1.3); POTASSIUM 4.5 mmol/L (3.5-5.1); TOT PROT 6.7 g/dl (6.4-8.2)
--- NOTE | 2019-06-06 12:01 | PN ---
S CIWA - CIWA Score Nausea/Vomitin-Mild Nausea/No Vomiting Muscle Tremors: 2 Anxiety: 3 Agitation: 1-Slight > Activity Paroxysmal Sweats: 2 Orientation: 0-Oriented Tacttile Disturbances: 0-None Auditory Disturbances: 1-Very Mild Visual Disturbances: 1-Very Mild Sensitivity Headache: 1-Very Mild CIWA-Ar Total Score: 12 S Progress Note (SOAP) Subjective: 33 years old male admitted on 06/05/19 for alcohol withdrawal sx management treating with librium detox regiment feeling ok today but tired trouble to fall a sleep last night less tremor Objective: 06/06/19 12:04 Vital Signs Temperature 96.5 F L 06/06/19 09:22 Pulse Rate 76 06/06/19 09:22 Respiratory Rate 18 06/06/19 09:22 Blood Pressure 113/67 06/06/19 09:22 O2 Sat by Pulse Oximetry (%) Laboratory Last Values WBC 3.2 K/mm3 (4.0-10.0) L 06/06/19 07:20 RBC 3.86 M/mm3 (4.00-5.60) L 06/06/19 07:20 Hgb 12.1 GM/dL (11.7-16.9) 06/06/19 07:20 Hct 35.6 % (35.4-49) 06/06/19 07:20 MCV 92.2 fl (80-96) 06/06/19 07:20 MCH 31.5 pg (25.7-33.7) 06/06/19 07:20 MCHC 34.1 g/dl (32.0-35.9) 06/06/19 07:20 RDW 13.1 % (11.9-15.9) 06/06/19 07:20 Plt Count 245 K/MM3 (134-434) 06/06/19 07:20 MPV 8.5 fl (7.5-11.1) 06/06/19 07:20 Sodium 140 mmol/L (136-145) 06/06/19 07:20 Potassium 4.5 mmol/L (3.5-5.1) 06/06/19 07:20 Chloride 107 mmol/L (98-107) 06/06/19 07:20 Carbon Dioxide 28 mmol/L (21-32) 06/06/19 07:20 Anion Gap 5 MMOL/L (8-16) L 06/06/19 07:20 BUN 12.3 mg/dL (7-18) 06/06/19 07:20 Creatinine 1.1 mg/dL (0.55-1.3) 06/06/19 07:20 Est GFR (CKD-EPI)AfAm 100.27 06/06/19 07:20 Est GFR (CKD-EPI)NonAf 86.51 06/06/19 07:20 Random Glucose 83 mg/dL (74-106) 06/06/19 07:20 Calcium 8.8 mg/dL (8.5-10.1) 06/06/19 07:20 Total Bilirubin 0.8 mg/dL (0.2-1) 06/06/19 07:20 AST 12 U/L (15-37) L 06/06/19 07:20 ALT 16 U/L (13-61) 06/06/19 07:20 Alkaline Phosphatase 65 U/L (45-117) 06/06/19 07:20 Total Protein 6.7 g/dl (6.4-8.2) 06/06/19 07:20 Albumin 3.3 g/dl (3.4-5.0) L 06/06/19 07:20 RPR Titer Nonreactive (NONREACTIVE) 06/06/19 07:20 lab noted Assessment: 06/06/19 12:04 alcohol withdrawal Plan: librium regiment
[2019-06-06 13:37] VITALS: BP 116/66; PULSE 73
--- NOTE | 2019-06-06 17:50 | DS ---
[facility] Detox Discharge Summary Admission Date: 06/05/19 Discharge Date: 06/06/19 - History Present History: Alcohol Dependence, Cocaine Dependence Pertinent Past History: Denies significant medical history - Physical Exam Results Vital Signs: Vital Signs Temperature 96.5 F L 06/06/19 13:01 Pulse Rate 73 06/06/19 13:01 Respiratory Rate 18 06/06/19 13:01 Blood Pressure 116/66 06/06/19 13:01 O2 Sat by Pulse Oximetry (%) Pertinent Admission Physical Exam Findings: withdrawal sx Laboratory Last Values WBC 3.2 K/mm3 (4.0-10.0) L 06/06/19 07:20 RBC 3.86 M/mm3 (4.00-5.60) L 06/06/19 07:20 Hgb 12.1 GM/dL (11.7-16.9) 06/06/19 07:20 Hct 35.6 % (35.4-49) 06/06/19 07:20 MCV 92.2 fl (80-96) 06/06/19 07:20 MCH 31.5 pg (25.7-33.7) 06/06/19 07:20 MCHC 34.1 g/dl (32.0-35.9) 06/06/19 07:20 RDW 13.1 % (11.9-15.9) 06/06/19 07:20 Plt Count 245 K/MM3 (134-434) 06/06/19 07:20 MPV 8.5 fl (7.5-11.1) 06/06/19 07:20 Sodium 140 mmol/L (136-145) 06/06/19 07:20 Potassium 4.5 mmol/L (3.5-5.1) 06/06/19 07:20 Chloride 107 mmol/L (98-107) 06/06/19 07:20 Carbon Dioxide 28 mmol/L (21-32) 06/06/19 07:20 Anion Gap 5 MMOL/L (8-16) L 06/06/19 07:20 BUN 12.3 mg/dL (7-18) 06/06/19 07:20 Creatinine 1.1 mg/dL (0.55-1.3) 06/06/19 07:20 Est GFR (CKD-EPI)AfAm 100.27 06/06/19 07:20 Est GFR (CKD-EPI)NonAf 86.51 06/06/19 07:20 Random Glucose 83 mg/dL (74-106) 06/06/19 07:20 Calcium 8.8 mg/dL (8.5-10.1) 06/06/19 07:20 Total Bilirubin 0.8 mg/dL (0.2-1) 06/06/19 07:20 AST 12 U/L (15-37) L 06/06/19 07:20 ALT 16 U/L (13-61) 06/06/19 07:20 Alkaline Phosphatase 65 U/L (45-117) 06/06/19 07:20 Total Protein 6.7 g/dl (6.4-8.2) 06/06/19 07:20 Albumin 3.3 g/dl (3.4-5.0) L 06/06/19 07:20 RPR Titer Nonreactive (NONREACTIVE) 06/06/19 07:20 Labs noted - Medication Discharge Medications: Ambulatory Orders NK [No Known Home Medication] 06/05/19 - Diagnosis (1) Alcohol dependence with withdrawal delirium Status: Acute (2) Cocaine dependence Status: Acute - AMA Did Patient Leave Against Medical Advice: Yes (Patient refused to be assessed by provider)
[2019-06-07] MEDS ORDERED: chlordiazePOXIDE 5 MG CAPSULE PO SCH (05:00)
--- NOTE | 2019-06-07 09:48 | EKG ---
Test Reason : Blood Pressure : / mmHG Vent. Rate : 068 BPM Atrial Rate : 068 BPM P-R Int : 150 ms QRS Dur : 090 ms QT Int : 392 ms P-R-T Axes : 069 073 039 degrees QTc Int : 416 ms NORMAL SINUS RHYTHM MINIMAL VOLTAGE CRITERIA FOR LVH, MAY BE NORMAL VARIANT ST ELEVATION, CONSIDER EARLY REPOLARIZATION, PERICARDITIS, OR INJURY ABNORMAL ECG WHEN COMPARED WITH ECG OF 22-APR-2019 21:29, NO SIGNIFICANT CHANGE WAS FOUND Confirmed by Humberto Rubio ([id number]) on 06/07/2019 9:48:18 AM Referred By: Confirmed By:Humberto Rubio
[2019-06-08] MEDS ORDERED: chlordiazePOXIDE HCL 10 MG CAPSULE PO PRN
[2019-06-08] MEDS ORDERED: chlordiazePOXIDE HCL 10 MG CAPSULE PO SCH (05:00)
[2019-06-09] MEDS ORDERED: chlordiazePOXIDE HCL 10 MG CAPSULE PO ONE (05:00)
== END 2019-06-06 17:36 | disposition left against medical advice (07) | DRG 770 ==
LOC: YASAS 12:27 → Y3N 16:45
PROVIDERS: ADMIT Allergy & Immunology; ATTEND Allergy & Immunology
PROC: HZ2ZZZZ Detoxification Services for Substance Abuse Treatment (ICD-10-PCS; principal; 2019-06-05)
DX: F10.230 Alcohol dependence with withdrawal, uncomplicated (principal); F14.20 Cocaine dependence, uncomplicated; F17.210 Nicotine dependence, cigarettes, uncomplicated; F32.9 Major depressive disorder, single episode, unspecified; E73.9 Lactose intolerance, unspecified; Z86.19 Personal history of other infectious and parasitic diseases; Z91.018 Allergy to other foods
CPT/HCPCS: 36415; 80053; 85027; 86593; 93005; 93010

== ENCOUNTER 2020-03-14 09:56 | Inpatient (IN) | payer OTHER ==
[2020-03-14 10:23] VITALS: BMI 21.9
[2020-03-14] MEDS ORDERED: ACETAMINOPHEN 325 MG TABLET (FP) PO PRN ×2 (10:57)
[2020-03-14] MEDS ORDERED: MENTHOL/PHENOL 1 EACH UD MM PRN (10:57)
[2020-03-14] MEDS ORDERED: METHOCARBAMOL 500 MG TABLET PO PRN (10:57)
[2020-03-14] MEDS ORDERED: MAGNESIUM CITRATE 300 ML BOTTLE PO PRN (10:57)
[2020-03-14] MEDS ORDERED: MAGNESIUM HYDROX 2400MG/30ML ORAL SUSPENSION 30 ML CUP PO PRN (10:57)
[2020-03-14] MEDS ORDERED: chlordiazePOXIDE HCL 25 MG CAPSULE PO PRN (10:57)
[2020-03-14] MEDS ORDERED: IBUPROFEN 400 MG TABLET (FP) PO PRN (10:57)
[2020-03-14] MEDS ORDERED: ONDANSETRON *ODT* 4 MG TABLET SL PRN (10:57)
[2020-03-14] MEDS ORDERED: BISMUTH SUBSALICYLATE 524 MG/30 ML UD PO PRN (10:57)
[2020-03-14] MEDS ORDERED: MAG HYDROX/AL HYDROX/SIMETH 30 ML UNIT-DOSE CUP PO PRN (10:57)
[2020-03-14] MEDS: NICOTINE 21 MG/24 HOURS TOPICAL PATCH TD SCH (11:31)
[2020-03-14 14:28] LABS: HEMATOCRIT 36.9 % (35.4-49); HEMOGLOBIN 12.7 GM/dL (11.7-16.9); MCH 31.9 pg (25.7-33.7); MCHC 34.4 g/dl (32.0-35.9); MEAN CELL VOLUME 92.7 fl (80-96); MEAN PLT VOLUME 7.6 fl (7.5-11.1); PLATELET COUNT 301 K/MM3 (134-434); RBC 3.98 M/mm3 (4.00-5.60); RDW 12.8 % (11.9-15.9); WHITE BLOOD COUNT 4.5 K/mm3 (4.0-10.0)
[2020-03-14 14:43] LABS: POTASSIUM 3.9 mmol/L (3.5-5.1)
[2020-03-14 14:47] LABS: BLOOD UREA NITROGEN 12.6 mg/dL (7-18)
[2020-03-14 14:50] LABS: CREATININE 1.1 mg/dL (0.55-1.3)
[2020-03-14 14:52] LABS: BILIRUBIN,TOTAL 1.2 mg/dL (0.2-1); TOT PROT 7.5 g/dl (6.4-8.2)
[2020-03-14] MEDS: hydrOXYzine PAMOATE 25 MG CAPSULE (FP) PO SCH ×3 (14:59→21:12)
[2020-03-14 15:48] LABS: HIV INTERPRETATION NEGATIVE (NEGATIVE)
[2020-03-14] MEDS: chlordiazePOXIDE HCL 25 MG CAPSULE PO SCH ×2 (17:39→22:00)
[2020-03-14] MEDS: NICOTINE POLACRILEX 2 MG GUM BUC PRN (17:41)
[2020-03-14] MEDS: THIAMINE HCL 100 MG TABLET (FP) PO SCH (21:11)
[2020-03-14] MEDS: MELATONIN 5 MG TABLETS PO PRN (21:12)
[2020-03-14] MEDS ORDERED: MELATONIN 5 MG TABLETS PO SCH (22:00)
[2020-03-15] MEDS: hydrOXYzine PAMOATE 25 MG CAPSULE (FP) PO SCH ×5 (05:24→22:00)
[2020-03-15] MEDS: chlordiazePOXIDE HCL 25 MG CAPSULE PO SCH ×2 (05:24→11:34)
[2020-03-15] MEDS: NICOTINE POLACRILEX 2 MG GUM BUC PRN ×4 (05:24→22:37)
[2020-03-15] MEDS ORDERED: PENICILLIN G BENZATHINE 2,400,000 UNIT/4 ML PFS IM ONE (10:00)
[2020-03-15] MEDS ORDERED: chlordiazePOXIDE HCL 10 MG CAPSULE PO PRN (11:10)
[2020-03-15] MEDS: NICOTINE 21 MG/24 HOURS TOPICAL PATCH TD SCH (11:36)
[2020-03-15] MEDS: PRENATAL VITAMINS W/ FOLIC ACID TABLET (FP) PO SCH (11:36)
[2020-03-15] MEDS: chlordiazePOXIDE HCL 10 MG CAPSULE PO SCH ×2 (17:23→22:00)
[2020-03-15] MEDS: THIAMINE HCL 100 MG TABLET (FP) PO SCH (22:00)
[2020-03-15] MEDS: MELATONIN 5 MG TABLETS PO PRN (22:00)
[2020-03-16] MEDS: hydrOXYzine PAMOATE 25 MG CAPSULE (FP) PO SCH ×5 (05:42→22:03)
[2020-03-16] MEDS: chlordiazePOXIDE HCL 10 MG CAPSULE PO SCH ×3 (05:42→18:03)
[2020-03-16] MEDS: NICOTINE POLACRILEX 2 MG GUM BUC PRN ×7 (05:44→22:04)
[2020-03-16] MEDS: PRENATAL VITAMINS W/ FOLIC ACID TABLET (FP) PO SCH (10:05)
[2020-03-16] MEDS: NICOTINE 21 MG/24 HOURS TOPICAL PATCH TD SCH (10:05)
[2020-03-16] MEDS: THIAMINE HCL 100 MG TABLET (FP) PO SCH (22:03)
[2020-03-16] MEDS: MELATONIN 5 MG TABLETS PO PRN (22:04)
[2020-03-17] MEDS: chlordiazePOXIDE HCL 10 MG CAPSULE PO SCH (05:08)
[2020-03-17] MEDS: hydrOXYzine PAMOATE 25 MG CAPSULE (FP) PO SCH ×2 (05:08→10:06)
[2020-03-17] MEDS: NICOTINE 21 MG/24 HOURS TOPICAL PATCH TD SCH (10:05)
[2020-03-17] MEDS: PRENATAL VITAMINS W/ FOLIC ACID TABLET (FP) PO SCH (10:05)
[2020-03-17] MEDS: NICOTINE POLACRILEX 2 MG GUM BUC PRN (10:06)
[2020-03-17 13:09] VITALS: BP 129/63; PULSE 63; TEMP 98
== END 2020-03-17 12:40 | disposition other institution (70) | DRG 774 ==
LOC: YASAS 09:56 → Y6N 10:40
PROVIDERS: ADMIT Allergy & Immunology; ATTEND Allergy & Immunology
PROC: HZ2ZZZZ Detoxification Services for Substance Abuse Treatment (ICD-10-PCS; principal; 2020-03-14)
DX: F10.230 Alcohol dependence with withdrawal, uncomplicated (principal); F14.20 Cocaine dependence, uncomplicated; F12.20 Cannabis dependence, uncomplicated; F17.210 Nicotine dependence, cigarettes, uncomplicated; F19.280 Other psychoactive substance dependence with psychoactive substance-induced anxiety disorder; F19.282 Other psychoactive substance dependence with psychoactive substance-induced sleep disorder; Z62.810 Personal history of physical and sexual abuse in childhood; R63.4 Abnormal weight loss; Z68.21 Body mass index [BMI] 21.0-21.9, adult; Z86.19 Personal history of other infectious and parasitic diseases; Z91.011 Allergy to milk products
CPT/HCPCS: 36415; 80053; 85027; 86593; 86780; 87389; C9803; U0003

== ENCOUNTER 2020-03-17 13:13 | Inpatient (IN) | payer OTHER ==
[2020-03-17] MEDS ORDERED: P-EPHED 60MG/TRIPROLIDI 2.5MG TABLET PO PRN (13:59)
[2020-03-17] MEDS ORDERED: MAG HYDROX/AL HYDROX/SIMETH 30 ML UNIT-DOSE CUP PO PRN (13:59)
[2020-03-17] MEDS ORDERED: hydrOXYzine PAMOATE 25 MG CAPSULE (FP) PO PRN (13:59)
[2020-03-17] MEDS ORDERED: IBUPROFEN 400 MG TABLET (FP) PO PRN (13:59)
[2020-03-17] MEDS ORDERED: MAGNESIUM CITRATE 300 ML BOTTLE PO PRN (13:59)
[2020-03-17] MEDS ORDERED: LOPERAMIDE HCL 2 MG CAPSULE PO PRN (13:59)
[2020-03-17] MEDS ORDERED: MENTHOL/PHENOL 1 EACH UD MM PRN (13:59)
[2020-03-17] MEDS ORDERED: ACETAMINOPHEN 325 MG TABLET (FP) PO PRN (13:59)
[2020-03-17] MEDS ORDERED: MAGNESIUM HYDROX 2400MG/30ML ORAL SUSPENSION 30 ML CUP PO PRN (13:59)
[2020-03-17] MEDS ORDERED: guaiFENesin 200 MG/10 ML 10 ML UNIT-DOSE CUPS PO PRN (13:59)
[2020-03-17] MEDS: NICOTINE POLACRILEX 2 MG GUM BUC PRN ×2 (14:21→17:16)
[2020-03-17 19:57] VITALS: BP 121/80; PULSE 84; TEMP 98.4
[2020-03-17] MEDS ORDERED: THIAMINE HCL 100 MG TABLET (FP) PO SCH (22:00)
[2020-03-17] MEDS ORDERED: MELATONIN 5 MG TABLETS PO SCH (22:00)
[2020-03-18] MEDS ORDERED: NICOTINE 7 MG/24 HOURS TOPICAL PATCH TD SCH (10:00)
[2020-03-18] MEDS ORDERED: PRENATAL VITAMINS W/ FOLIC ACID TABLET (FP) PO SCH (10:00)
== END 2020-03-17 20:05 | disposition left against medical advice (07) | DRG 770 ==
LOC: YASAS 13:13 → Y5N 13:16
PROVIDERS: ADMIT Allergy & Immunology; ATTEND Allergy & Immunology
PROC: HZ42ZZZ Group Counseling for Substance Abuse Treatment, Cognitive-Behavioral (ICD-10-PCS; principal; 2020-03-17)
DX: F10.20 Alcohol dependence, uncomplicated (principal); F17.210 Nicotine dependence, cigarettes, uncomplicated